=== PATIENT | born 1975 | race Caucasian/White ===

== ENCOUNTER 2024-12-20 03:42 | Day surgery (SDC) | payer OTHER, SELFPAY ==
[2024-12-10 13:18] VITALS: BMI 28.1
--- OUTSIDE RECORDS SUMMARY | 2024-12-20 03:45 | XMS_ITS | Patient Health Record ---
Author Organization [facility] Address [address] [place] [address] Care Team Providers Care Vp Celebrity Services Name Role Phone Santo Ocasio Primary Care Provider Allergies No Known Allergies Results Component Value Reference Range Notes 12 Panel Urine Drug Screen Reviewed date:11/21/2024 03:57:01 PM Interpretation: Performing Lab: Notes/Report: THC neg DAVID neg MOP (OPI) neg AMP neg MET neg BAR neg BZO neg MDMA neg MTD neg OXY neg PCP neg BUP neg Reason For Referral No Information Medications Medication SIG (Take, Route, Fr equency, Duration) Notes Start Date End Date Status Suboxone 8-2 MG 1 film under the ton varghese and allow to dissolve Sublingual twice a day 11/21/2024 Active Social History Tobacco Use: Social History Observation Description Date Details (start date - stop date) Unknown Tobacco Control (Standard) Question Answer Notes Tobacco use: Uses tobacco in other forms Additional Findings: Tobacco user Chews tobacco Problems Problem Type SNOMED Code ICD Code Onset Dates Problem Status W/U Status Risk Notes Problem Tobacco user (016410339) Nicotine dependence, unspecified, uncomplicated (F17.200) Active confirmed Problem Overweight (054024522) Overweight (BMI 25.0-29.9) (E66.3) Active confirmed Problem Opioid use disorder (8663464458) Opioid use disorder (F11.99) Active confirmed Vital Signs Heart Rate 77 /min 11/21/2024 Temperature 98.2 degrees Fahrenheit 11/21/2024 Respiratory Rate 16 /min 11/21/2024 Blood pressure diastolic 84 mm Hg 11/21/2024 Oximetry 97 % 11/21/2024 Height 68 in 11/21/2024 Blood pressure systolic 144 mm Hg 11/21/2024 Weight 181.2 lbs 11/21/2024 BMI 27.55 kg/m2 11/21/2024 Encounters Encounter Location Date Provider Diagnosis [facility] [place] [address] 11/21/2024 Santo Ocasio Nutritional counseli ng Z71.3 ; Opioid use disorder F11.99 ; Nicotine dependence, unspecified, uncomplicated F17.200 and Overweight (BMI 25.0-29.9) E66.[address] [place] [address] 12/10/2024 Santo Ocasio [facility] [address] [place] [address] 12/12/2024 Santo Ocasio Assessments Encounter Date Diagnosis (ICD Code) Assessment Notes Treatment Notes Treatment Clinical Notes Section Notes 11/21/2024 Nutritional counseling (ICD-10 - Z71.3) 11/21/2024 Opioid use disorder (ICD-10 - F11.99) Requested 30 day prescription due to work schedule. 11/21/2024 Nicotine dependence, unspecified, uncomplicated (ICD-10 - F17.200) 11/21/2024 Overweight (BMI 25.0-29.9) (ICD-10 - E66.3) 11/21/2024 Other Discussed medication side effects, adverse effects, risks, benefits, as well as interactions. Encouraged non-use of opioids. Has naloxone. Recommended participation in recovery groups and/or counseling services. May contact office with questions or concerns. Plan Of Treatment No Information Insurance Providers Payer Name Payer Address Payer Phone Subscriber Number Group Number Insured Name Patient Relationship to Insured Coverage Start Date Coverage End Date [facility] [employer] [id number] [place] [id number] Gui Cueto Self - patient is the insured Medical (General) History Surgical History Surgery Date(Month/Year) ACL tear 2014 Hospitalization History Reason Date(Month/Year)
--- OUTSIDE RECORDS SUMMARY | 2024-12-20 03:45 | XMS_ITS | Clinical Summary ---
Author Organization [facility] Address 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 Gender Identity Not on file Sexual Orientation Not on file Last Filed Vital Signs Vital Sign Reading Time Taken Comments Blood Pressure 130/88 09/04/2020 1:53 PM SOFTWARE QUALITY ANALYST Pulse 78 09/04/2020 1:53 PM SOFTWARE QUALITY ANALYST Temperature 37 C (98.6 F) 09/04/2020 1:53 PM SOFTWARE QUALITY ANALYST Respiratory Rate - - Oxygen Saturation 98% 09/04/2020 1:53 PM SOFTWARE QUALITY ANALYST Inhaled Oxygen Concentration - - Weight - - Height - - Body Mass Index - - Plan of Treatment Health Maintenance Due Date Last Done Comments Hepatitis C Virus (HCV) Screening 1974 TdaP Immunization 1974 Hepatitis B Immunization (1 of 3 - 19+ 3-dose series) 1993 Colonoscopy 2019 Colorectal Cancer Screening 2019 Cologuard 2024 Immunochemical Fecal Occult Blood 2024 Pneumococcal Immunization (5 0+ years) (1 of 1 - PCV) 2024 Zoster Immunization (1 of 2) 2024 Influenza Immunization (#1) 2024 SARS-COV-2 Immunization ( - 2023-25 season) 2024 Respiratory Syncytial Virus (RSV) Immunization (Adult) (1 - 1-dose 75+ series) 2049 Meningococcal Immunization (ACWY) Aged Out No longer eligible based on patient's age to complete this topic Pneumococcal Immunization Combined Aged Out No longer eligible based on patient's age to complete this topic Rotavirus Immunization Aged Out No lo nger eligible based on patient's age to complete this topic Care Teams Insulation Engineman Relationship Specialty Start Date End Date Jonathan Jordan MD [address] [place] [address] PCP - General 08/31/07
[2024-12-20] MEDS: LACTATED RINGERS 1,000 ML 150 ML IV CONT (12:39)
--- NOTE | 2024-12-20 12:45 | P.HP_ITS ---
History of Present Illness History of Present Illness Consent: Risks, benefits, and alternatives have been discussed and questions answered. Patient agrees to proceed with procedure. Chief complaint: Screening Narrative: Gui Cueto is a 49 year old female with mother had colon cancer, last colonoscopy 15 years ago. Narrative: Gui Cueto is a 49 year old male Review of Systems Review of Systems: All systems reviewed & are unremarkable except as noted in HPI and below PMFSH Past Medical History Medical History (Updated 10/15/24 @ 15:01 by Catarino Medel DO) Family history of colon cancer in mother Tear meniscus knee Surgical History Surgical History (Updated 10/15/24 @ 14:23 by Kellen Mooney [facility]) Status post lateral meniscus repair Family History Family History (Updated 10/15/24 @ 14:26 by Kellen Mooney [facility]) Mother Leukemia Grandparent Leukemia Heart problem Grandparent Leukemia Social History Social History (Updated 10/15/24 @ 14:41 by Kellen Mooney [facility]) Smoking status: Never smoker Tobacco type: smokeless tobacco Smokeless tobacco user: chewing tobacco Second hand tobacco smoke exposure: Yes Alcohol intake: current Drinks per week: 10 Alcohol use details: couple beers every night Substance use: former Substance use type: painkillers Do You Feel Safe in your Home?: Yes Lack of Transportation: No Lack of Food: Never True Current Housing: I Have Housing Concerned About Future Housing: No Difficulty Paying Gas/Electric Bills: No Difficulty Paying for Meds: No Currently Unemployed: No Education: Decline to Answer Difficulty w/ Childcare or Family Care: No Living arrangements: with family Gender identity (if verbalized by the patient): Male Sexual Orientation (if Verbalized by the Patient): Straight or Heterosexual Spiritual care concerns: No Agree to blood products: Yes Meds Home Medications and Allergies Home Medications ?Medication ?Instructions ?Recorded ?Confirmed ?Type buprenorphine 4 mg-naloxone 1 mg 2 film buccal Q24H 10/15/24 12/20/24 History sublingual film (Suboxone) Allergies Allergy/AdvReac Type Severity Reaction Status Date / Time No Known Allergies Allergy Verified 12/10/24 13:05 Exam Const: General: comfortable and no acute distress HENMT: Face/Nose/Sinus: Normal nares present Eyes: General: appearance normal, both eyes and all related structures Neck: Neck: no JVD Resp: Auscultation: clear to auscultation bilaterally Cardio: Rate: regular rate Rhythm: regular rhythm GI: Inspection: non-distended GI Palp: Yes Soft to palpation Skin: General skin exam: normal color Neuro: General: gait normal Speech: normal speech Extrem: General: normal to inspection Psych: Mental Status: mental status grossly normal Assessment and Plan Assessment and plan (1) Family history of colon cancer in mother: Code(s): Z80.0 - Family history of malignant neoplasm of digestive organs Status: Acute Assessment and Plan: colonoscopy
--- NOTE | 2024-12-20 12:46 | P.PNAN_ITS ---
Anes - Initial Pre Proc Eval Procedure: Operation Date: 12/20/24 14:30 Proposed Procedures p Screening Colonoscopy - Juan Oscar MD Date/Time: 12/20/24 12:46 Surgeon: Juan Oscar MD Pre Op Diagnosis: Screening Patient Data Age: 49 Gender: U Height: 1.73 m Weight: 74.3 kg Allergies Allergy/AdvReac Type Severity Reaction Status Date / Time No Known Allergies Allergy Verified 12/10/24 13:05 Home Medications ?Medication ?Instructions ?Recorded ?Confirmed ?Type buprenorphine 4 mg-naloxone 1 mg 2 film buccal Q24H 10/15/24 12/20/24 History sublingual film (Suboxone) Patient hx anesthesia problems: none Family hx anesthesia problems: none Results Review: All pre-operative results and documents have been reviewed as part of the pre- operative evaluation. [facility] Past Medical History Medical History (Updated 10/15/24 @ 15:01 by Catarino Medel DO) Family history of colon cancer in mother Tear meniscus knee Surgical History Surgical History (Updated 10/15/24 @ 14:23 by Kellen Mooney CMA) Status post lateral meniscus repair Family History Family History (Updated 10/15/24 @ 14:26 by Kellen Mooney CMA) Mother Leukemia Grandparent Leukemia Heart problem Grandparent Leukemia Social History Social History (Updated 10/15/24 @ 14:41 by Kellen Mooney CMA) Smoking status: Never smoker Tobacco type: smokeless tobacco Smokeless tobacco user: chewing tobacco Second hand tobacco smoke exposure: Yes Alcohol intake: current Drinks per week: 10 Alcohol use details: couple beers every night Substance use: former Substance use type: painkillers Do You Feel Safe in your Home?: Yes Lack of Transportation: No Lack of Food: Never True Current Housing: I Have Housing Concerned About Future Housing: No Difficulty Paying Gas/Electric Bills: No Difficulty Paying for Meds: No Currently Unemployed: No Education: Decline to Answer Difficulty w/ Childcare or Family Care: No Living arrangements: with family Gender identity (if verbalized by the patient): Male Sexual Orientation (if Verbalized by the Patient): Straight or Heterosexual Spiritual care concerns: No Agree to blood products: Yes Anes - Eval Final PreProcedure Day of Procedure 12/20/24 12:46 Patient weight: normal Heart: regular rate and rhythm Lungs: clear to auscultation Airway: Mallampati scale class II Neurological: alert and oriented Last oral intake: >/= 8 hours ASA classification: II Emergent: no Anesthetic plan: proceed Anesthesia type and monitoring: general GIVS and standard monitoring Results Review: All pre-operative results and documents have been reviewed as part of the pre- operative evaluation. Informed Consent: The patient's anesthetic plan and its attendant risks and benefits were discussed with the patient/family/POA. Questions were solicited and answers provided to the satisfaction of the patient/family/POA.
[2024-12-20 13:00] VITALS: BP 132/86; PULSE 88; RESP 18; O2SAT 100
[2024-12-20 13:10] VITALS: BP 151/94; PULSE 82; RESP 18; O2SAT 100
[2024-12-20 13:20] VITALS: BP 146/90; PULSE 89; RESP 19; O2SAT 100
== END 2024-12-20 13:34 | disposition home or self-care (01) ==
PROVIDERS: PCP Internal Medicine; Referring Provider Internal Medicine; Visit Provider Internal Medicine Gastroenterology
PROC: 0DJD8ZZ Inspection of Lower Intestinal Tract, Via Natural or Artificial Opening Endoscopic (ICD-10-PCS; CPT 45378; principal; 2024-12-20 14:30)
DX: Z12.11 Encounter for screening for malignant neoplasm of colon (principal); K64.8 Other hemorrhoids; K57.30 Diverticulosis of large intestine without perforation or abscess without bleeding; F17.220 Nicotine dependence, chewing tobacco, uncomplicated; Z98.890 Other specified postprocedural states; Z80.0 Family history of malignant neoplasm of digestive organs; Z80.6 Family history of leukemia; Z82.49 Family history of ischemic heart disease and other diseases of the circulatory system
CPT/HCPCS: 45378; J2704; J7120